=== PATIENT | male | born 1995 | race Caucasian/White ===

== ENCOUNTER 2016-05-22 13:25 | Emergency (ER) | payer OTHER ==
[2016-05-22 14:04] VITALS: BP 140/69; PULSE 73; RESP 18; TEMP 98.2; O2SAT 95
--- NOTE | 2016-05-22 14:18 | UCPHY ---
H & P Patient Type: New Chief Complaint Nursing Narrative: sinus congestion for 3 days, vomits mucus when first wakes up in am Time Seen by Provider: 05/22/16 14:16 HPI/ROS: CHIEF COMPLAINT: nasal congestion, head pressure, cough HISTORY OF PRESENT ILLNESS: 20-year-old male presents with a 5 day history of nasal congestion, cough, ear pressure and head pressure. Patient reports facial pain. He is unsure if he has had fevers. He has been taking Zyrtec without relief. 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 Patient states he has vomited the last 2 mornings a lot of mucus, cough is worse at night. Mild sore throat. No chest pain or shortness of breath, no nausea abdominal pain or diarrhea. REVIEW OF SYSTEMS: A comprehensive 10 point review of systems is otherwise negative aside from elements mentioned in the history of present illness. Source: Patient Exam Limitations: No limitations - Medical/Surgical History Other PMH: denies - Family History Significant Family History: No pertinent family hx - Social History Smoking Status: Current some day smoker - Physical Exam Exam: General: Alert, nontoxic. ENT: Tympanic membranes clear, external auditory canal, external ear and surrounding soft tissue including over the mastoid unremarkable. Nasopharynx is injected with swelling, there is rhinorrhea. Oropharynx with erythema. There is no exudate. No tonsillar hypertrophy. No asymmetry. The uvula is midline. No elevation of tongue. There is no hoarseness. No drooling, patient has good control of their oral secretions. No trismus. No stridor. Maxillary sinus tenderness to palpation bilaterally, no facial swelling Cardiac: Regular rate and rhythm. Respiratory: Lungs clear to auscultation bilaterally. Neurological: no meningismus. Skin: No rashes. Constitutional: Initial Vital Signs Temperature (C) 36.8 C 05/22/16 14:01 Heart Rate 73 05/22/16 14:01 Respiratory Rate 18 05/22/16 14:01 Blood Pressure 140/69 H 05/22/16 14:01 O2 Sat (%) 95 05/22/16 14:01 Allergies/Adverse Reactions: No Known Allergies Allergy (Unverified 05/22/16 14:01) Home Medications: Medication Instructions Recorded Amoxicillin 500 mg PO BID 10 Days 05/22/16 Fluticasone Nasal [Flonase Nasal 1 sprays NASAL DAILY #1 mdi 05/22/16 [place] (RX)] Departure - Departure Disposition: Home, Routine, Self-Care Clinical Impression: Sinusitis, acute maxillary Condition: Good Instructions: Sinusitis (ED) Additional Instructions: Take over the counter Tylenol and ibuprofen alternating them every 4 hours. Rest, drink plenty of fluids. Use 1 spray of Flonase in each nostril daily for 7 days. Take [id number] Sudafed as instructed. Take antibiotics as prescribed. Use a saline nasal rinse, humidifier at night, hot steam showers. Return to the ED for difficulty breathing, chest pain, other concerns. Stop smoking cigarettes. Referrals: Serigo Morataya MD [Primary Care Provider] - As per Instructions Prescriptions: Amoxicillin 500 mg PO BID 10 Days Fluticasone Nasal [Flonase Nasal [place] (RX)] 1 sprays NASAL DAILY #1 mdi - PQRS PQRS Measurement: na
== END 2016-05-22 15:11 | disposition home or self-care (01) ==
LOC: CED 13:25
DX: J01.00 Acute maxillary sinusitis, unspecified (principal)
CPT/HCPCS: 99203-PO; G0463-PO